=== PATIENT | male | born 1990 ===

== ENCOUNTER 2017-01-20 03:01 | Emergency (ER) | payer SELFPAY ==
[2017-01-20 03:08] VITALS: RESP 18; O2SAT 100
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
[2017-01-20 04:37] VITALS: BP 130/72; PULSE 89; TEMP 98.1
--- NOTE | 2017-01-20 09:21 | RAD ---
HISTORY: Sepsis Patient COMPARISON: No prior. FINDINGS: LUNGS: No active pulmonary disease. PLEURA: No significant pleural effusion identified, no pneumothorax apparent. CARDIOVASCULAR: Normal. OSSEOUS STRUCTURES: No significant abnormalities. VISUALIZED UPPER ABDOMEN: Normal. OTHER FINDINGS: None. IMPRESSION: No acute cardiopulmonary disease appreciated.
== END 2017-01-20 04:38 | disposition home or self-care (01) ==
LOC: C.ER 03:01
DX: S21.112A Laceration without foreign body of left front wall of thorax without penetration into thoracic cavity, initial encounter (principal); X99.1XXA Assault by knife, initial encounter; Y92.810 Car as the place of occurrence of the external cause